=== PATIENT | female | born 1955 | race Caucasian/White ===

== ENCOUNTER 2019-09-21 21:09 | Emergency (ER) | payer MEDICARE ==
[~2019-09-21] VITALS: Ht 165.1 cm; Wt 57.7 kg
--- NOTE | 2019-09-21 21:26 | NUR ---
DR GALICIA UPDATED OF PT. VERBAL FOR EKG, NO NEED FOR INITIAING STROKE PROTOCOL AT THIS IE.
[2019-09-21] MEDS ORDERED: metoprolol tartrate 1mg/ml inj IV ONE (21:35)
[2019-09-21] MEDS ORDERED: aspirin 81mg tab.chew PO ONE (21:35)
[2019-09-21 21:53] LABS: BASOPHILS # (AUTO) 0.1 X10'3 (0-0.2); BASOPHILS % (AUTO) 0.8 % (0-1); EOSINOPHILS # (AUTO) 0.2 X10'3 (0-0.9); EOSINOPHILS % (AUTO) 3.8 % (0-6); HEMATOCRIT 38.6 % (35.0-45.0); HEMOGLOBIN 13.2 g/dl (12.0-16.0); LYMPHOCYTES # (AUTO) 2.2 X10'3 (1.1-4.8); LYMPHOCYTES % (AUTO) 34.8 % (21-51); MEAN CORPUSCULAR HEMOGLOBIN 30.7 PG (27.0-31.0); MEAN CORPUSCULAR HGB CONC 34.2 g/dL (33.0-36.5); MEAN PLATELET VOLUME 8.2 FL (7.4-10.4); MONOCYTES # (AUTO) 0.7 X10'3 (0-0.9); MONOCYTES % (AUTO) 10.9 % (2-12); NEUTROPHILS # (AUTO) 3.2 X10'3 (1.8-7.7); NEUTROPHILS % (AUTO) 49.7 % (42-75); PLATELET COUNT 261 X10'3 (140-440); RED BLOOD COUNT 4.28 X10'6 (4.20-5.60); RED CELL DISTRIBUTION WIDTH 13.4 % (11.5-14.5); WHITE BLOOD COUNT 6.4 X10'3 (4.5-11.0)
[2019-09-21 22:03] LABS: ALANINE AMINOTRANSFERASE 22 U/L (12-78); ALBUMIN 3.8 G/DL (3.4-5.0); ALKALINE PHOSPHATASE 62 IU/L (46-116); ANION GAP 8 (8-16); ASPARTATE AMINO TRANSFERASE 16 U/L (10-37); BILIRUBIN,TOTAL 0.3 MG/DL (0.1-1.0); BLOOD UREA NITROGEN 17 MG/DL (7-18); BUN/CREATININE RATIO 19.3 (6.6-38.0); CALCIUM 8.8 MG/DL (8.5-10.1); CHLORIDE 105 MMOL/L (99-107); CREATININE 0.88 MG/DL (0.40-0.90); GLUCOSE 172 MG/DL (70-104); POTASSIUM 3.1 MMOL/L (3.5-5.1); SODIUM 143 MMOL/L (135-145); TOTAL CARBON DIOXIDE 29.6 MMOL/L (24-32); TOTAL PROTEIN 7.5 G/DL (6.4-8.2); eGFR 64 ML/MIN
[2019-09-21 22:06] LABS: TROPONIN I < 0.04 NG/ML (0.0-0.05)
[2019-09-21] MEDS ORDERED: potassium Cl 20 mEq SR tablet PO STA (22:16)
[2019-09-21] MEDS ORDERED: cloNIDine 0.1 mg tablet PO ONE (22:20)
[2019-09-21 22:43] VITALS: BP 174/90
== END 2019-09-21 22:49 | disposition home or self-care (01) ==
LOC: ER 21:10
DX: I10 Essential (primary) hypertension (principal); R20.0 Anesthesia of skin; R20.2 Paresthesia of skin; Z98.890 Other specified postprocedural states; Z88.2 Allergy status to sulfonamides; Z88.1 Allergy status to other antibiotic agents
CPT/HCPCS: 36415; 70450; 71045; 80053; 84484; 85025; 93005; 96374; 99285; J3490